=== PATIENT | female | born 1965 | race Caucasian/White ===

== ENCOUNTER 2021-12-14 11:20 | Emergency (ER) | payer SELFPAY | END 2021-12-14 13:30 | disposition home or self-care (01) | LOC: CSHERS 11:20 | DX: J45.901 Unspecified asthma with (acute) exacerbation (principal) | CPT/HCPCS: 99283 ==

== ENCOUNTER 2022-05-01 15:40 | Emergency (ER) | payer OTHER, SELFPAY ==
[2022-05-01] MEDS ORDERED: Acetaminophen 325 MG TAB ONE (16:38)
[2022-05-01] MEDS ORDERED: Aspirin Chewable 81 MG TAB ONE (16:38)
[2022-05-01 16:56] LABS: #Basophils 0.1 10x3/uL (0.0-0.2); #Eosinphils 0.4 10x3/uL (0.0-0.5); #Monocytes 0.5 10x3/uL (0.0-1.1); #Neutrophils 4.1 10x3/uL (1.5-8.4); %Basophils 1.5 % (0.0-2.0); %Eosinophils 5.3 % (0.0-6.0); %Lymphocytes 27.6 % (18.0-47.0); %Monocytes 7.2 % (0.0-10.0); %Neutrophils 58.1 % (40.0-75.0); Hemoglobin 13.5 g/dL (12.0-15.5); Mean Corpuscular HGB CONC 33.4 g/dL (32.0-36.0); Mean Corpuscular Hemoglobin 29.5 pg (27.0-33.0); Mean Corpuscular Volume 88.2 fl (81.6-98.3); Mean Platelet Volume 9.8 fl (7.4-10.4); Platelet Count 347 10x3/uL (150-450); RBC Distribution Width 13.4 % (11.5-14.5); Red Blood Cell (RBC) Count 4.58 10x6/uL (3.90-5.03); White Blood Cell (WBC) Count 7.1 10x3/uL (3.5-10.5)
[2022-05-01 17:13] LABS: ALT (SGPT) 30 U/L (8-55); AST (SGOT) 19 U/L (5-34); Albumin 4.2 g/dL (3.5-5.0); Alkaline Phosphatase 65 U/L (40-110); Anion Gap 15 mmol/L (10-20); BUN (Urea Nitrogen) 22 mg/dL (9.8-20.1); Bilirubin, Total 0.2 mg/dL (0.2-1.2); Calc. Creatinine Clearance 0 mL/min (70-130); Calcium 9.3 mg/dL (7.8-10.44); Carbon Dioxide 24 mmol/L (22-29); Chloride 103 mmol/L (98-107); Estimated GFR 82; Globulin 3.2 g/dL (2.4-3.5); Glucose 298 mg/dL (70-105); Magnesium 1.8 mg/dL (1.6-2.6); Potassium 3.8 mmol/L (3.5-5.1); Protein, Total 7.4 g/dL (6.0-8.3); Sodium 138 mmol/L (136-145)
[2022-05-01 17:14] LABS: Acetaminophen Less than 10.0 mcg/mL (10.0-30.0); Alcohol Less than 10 mg/dL (Less than 10); CK (CPK) 34 U/L (29-168); Salicylate Less than 8.0 mg/dL (15.0-30.0)
[2022-05-01 18:34] LABS: Bilirubin Neg (Negative); Blood, Urine Negative (Negative); Clarity Clear (Clear); Glucose, Urine (Dipstick) 250 mg/dL (Negative); Ketone, Urine Negative (Negative); Leukocyte Negative (Negative); Nitrite Negative (Negative); Protein, Urine (Dipstick) Negative (Neg-Trace); Specific Gravity, Urine 1.025 (1.002-1.036); Urobilinogen Normal mg/dL (Less than 2)
[2022-05-01 18:39] LABS: Pregnancy Test - Urine (BHCG) Negative (Negative); Pregu Control Background? CLEAR/WHITE (CLR/WHITE); Pregu Control Bar Appear? YES (CONTROL BAR); Specific Gravity 1.025 (1.002-1.036)
[2022-05-01 18:50] LABS: Amphetamine Not Detected (NotDetected); Barbiturates Screen Not Detected (NotDetected); Benzodiazepine Screen Detected (NotDetected); Cocaine Metabolite Screen Not Detected (NotDetected); Methadone Not Detected (NotDetected); Methamphetamine Not Detected (NotDetected); Opiate Screen Not Detected (NotDetected); Oxycodone Screen Not Detected (NotDetected); Phencyclidine (PCP) Not Detected (NotDetected); THC/Cannabinoid Screen Detected (NotDetected); Tricyclic Screen Not Detected (NotDetected)
[2022-05-01 20:51] LABS: SARS-CoV-2 NAA Rapid Test Not Detected (NotDetected)
[2022-05-02] MEDS ORDERED: traZODone HCl 50 MG TAB ONE (05:42)
[2022-05-02] MEDS ORDERED: Ziprasidone 20 MG CAP ONE (05:43)
[2022-05-02] MEDS ORDERED: Acetaminophen 325 MG TAB ONE (05:43)
[2022-05-02] MEDS ORDERED: OLANZapine 5 MG TAB PO SCH (06:00)
== END 2022-05-02 16:07 ==
LOC: CSHERS 15:40
DX: F13.90 Sedative, hypnotic, or anxiolytic use, unspecified, uncomplicated (principal); F12.90 Cannabis use, unspecified, uncomplicated; F32.A Depression, unspecified; E11.9 Type 2 diabetes mellitus without complications; R45.851 Suicidal ideations; I10 Essential (primary) hypertension; E03.9 Hypothyroidism, unspecified; Z79.899 Other long term (current) drug therapy; Z20.822 Contact with and (suspected) exposure to COVID-19
CPT/HCPCS: 36415; 71045; 80053; 80306; 80307; 81003; 81025; 82550; 83735; 83880; 84443; 84484; 85025; 93005; U0002

== ENCOUNTER 2022-05-16 14:32 | Emergency (ER) | payer OTHER | END 2022-05-16 17:20 | disposition home or self-care (01) | LOC: CSHERS 14:32 | DX: S90.112A Contusion of left great toe without damage to nail, initial encounter (principal); B37.0 Candidal stomatitis; M54.50 Low back pain, unspecified; I10 Essential (primary) hypertension; E11.9 Type 2 diabetes mellitus without complications; E03.9 Hypothyroidism, unspecified; W19.XXXA Unspecified fall, initial encounter ==

== ENCOUNTER 2022-06-01 13:08 | Outpatient (CLI) | payer OTHER | END 2022-06-01 13:09 | disposition home or self-care (01) | LOC: CSHMAMMO 13:08 | PROVIDERS: ATTEND Family Medicine | DX: Z12.31 Encounter for screening mammogram for malignant neoplasm of breast (principal); N64.89 Other specified disorders of breast; Z80.3 Family history of malignant neoplasm of breast | CPT/HCPCS: 77063; 77067 ==

== ENCOUNTER 2022-06-26 09:34 | Emergency (ER) | payer OTHER | END 2022-06-26 11:05 | disposition home or self-care (01) | LOC: CSHERS 09:34 | DX: H66.93 Otitis media, unspecified, bilateral (principal); J18.9 Pneumonia, unspecified organism; I10 Essential (primary) hypertension; E11.9 Type 2 diabetes mellitus without complications | CPT/HCPCS: 71045; 94760; J7620 ==

== ENCOUNTER 2022-07-20 22:08 | Inpatient (IN) | payer OTHER ==
[2022-07-20] MEDS ORDERED: predniSONE 20 MG TAB ONE (23:10)
[2022-07-21] MEDS ORDERED: Magnesium 2 GM/50 ML BAG (IN WATER) ONE (00:18)
[2022-07-21 00:31] LABS: #Basophils 0.1 10x3/uL (0.0-0.2); #Eosinphils 0.3 10x3/uL (0.0-0.5); #Monocytes 0.8 10x3/uL (0.0-1.1); #Neutrophils 6.7 10x3/uL (1.5-8.4); %Basophils 0.9 % (0.0-2.0); %Eosinophils 2.3 % (0.0-6.0); %Monocytes 6.8 % (0.0-10.0); %Neutrophils 57.7 % (40.0-75.0); Hemoglobin 12.8 g/dL (12.0-15.5); Mean Corpuscular HGB CONC 33.4 g/dL (32.0-36.0); Mean Corpuscular Hemoglobin 29.6 pg (27.0-33.0); Mean Corpuscular Volume 88.5 fl (81.6-98.3); Mean Platelet Volume 9.2 fl (7.4-10.4); Platelet Count 367 10x3/uL (150-450); RBC Distribution Width 12.8 % (11.5-14.5); Red Blood Cell (RBC) Count 4.33 10x6/uL (3.90-5.03); White Blood Cell (WBC) Count 11.6 10x3/uL (3.5-10.5)
[2022-07-21] MEDS ORDERED: Azithromycin 500 MG VIAL ONE (00:35)
[2022-07-21 00:38] LABS: ALT (SGPT) 29 U/L (8-55); AST (SGOT) 18 U/L (5-34); Albumin 4.2 g/dL (3.5-5.0); Alkaline Phosphatase 77 U/L (40-110); Anion Gap 15 mmol/L (10-20); BUN (Urea Nitrogen) 18 mg/dL (9.8-20.1); Bilirubin, Total 0.2 mg/dL (0.2-1.2); Calc. Creatinine Clearance 0 mL/min (70-130); Calcium 10.3 mg/dL (7.8-10.44); Carbon Dioxide 30 mmol/L (22-29); Chloride 97 mmol/L (98-107); Estimated GFR 84; Globulin 3.1 g/dL (2.4-3.5); Glucose 256 mg/dL (70-105); Potassium 3.5 mmol/L (3.5-5.1); Protein, Total 7.3 g/dL (6.0-8.3); Sodium 138 mmol/L (136-145)
[2022-07-21 01:22] LABS: SARS-CoV-2 NAA Rapid Test Not Detected (NotDetected)
[2022-07-21] MEDS ORDERED: Dextrose 5% in Water 1,000 ML IV PRN (03:00)
[2022-07-21] MEDS ORDERED: Potassium Chloride 20 MEQ TAB PO SCH (03:00)
[2022-07-21] MEDS ORDERED: Dextrose 50% Abboject 50 ML SYRINGE IVP PRN (03:00)
[2022-07-21] MEDS ORDERED: HumaLOG 300 UNITS/3 ML VIAL SC SCH (03:00)
[2022-07-21] MEDS ORDERED: cefTRIAXone\\ROCEPHIN 1 GM VIAL ONE (03:05)
[2022-07-21] MEDS ORDERED: Potassium Chloride 20 MEQ TAB ONE (03:05)
[2022-07-21] MEDS ORDERED: Sodium Chloride 0.9% 100 ML ONE (03:06)
[2022-07-21] MEDS ORDERED: Sodium Chloride 0.9% 1,000 ML ONE (03:06)
[2022-07-21] MEDS: cefTRIAXone\\ROCEPHIN 1 GM in Sodium Chloride 0.9% 100 ML IVPB SCH (03:15)
[2022-07-21] MEDS: Sodium Chloride 0.9% 1,000 ML IV SCH ×3 (03:15→22:57)
[2022-07-21] MEDS ORDERED: Insulin Regular 300 UNITS/3 ML VIAL ONE (05:17)
[2022-07-21] MEDS ORDERED: HumaLOG 300 UNITS/3 ML VIAL ONE (05:17)
[2022-07-21] MEDS ORDERED: Insulin Regular 300 UNITS/3 ML VIAL IVP SCH (05:30)
[2022-07-21] MEDS: Budesonide 0.5 MG/2 ML NEB NEB SCH ×2 (06:30→19:50)
[2022-07-21] MEDS: Arformoterol 15 MCG/2 ML NEB NEB SCH ×2 (06:30→19:55)
[2022-07-21 06:35] LABS: Lactic Acid 2.6 mmol/L (0.5-2.2)
[2022-07-21 06:36] VITALS: BMI 30.7
[2022-07-21] MEDS ORDERED: FLU VACC QS2022-23(6MOS UP)/PF 60 MCG/0.5 ML SYRINGE IM ONE (07:15)
[2022-07-21] MEDS ORDERED: Iopamidol 300 61% 100 ML VIAL FS ONE (08:52)
[2022-07-21] MEDS: DULoxetine 30 MG CAP PO SCH (08:59)
[2022-07-21] MEDS: OLANZapine 5 MG TAB PO SCH (08:59)
[2022-07-21] MEDS: methylPREDNISolone Sod Succ 40 MG VIAL IVP SCH ×2 (08:59→21:00)
[2022-07-21] MEDS: guaiFENesin ER 600 MG TAB PO SCH ×2 (08:59→21:00)
[2022-07-21 09:47] LABS: Magnesium 1.7 mg/dL (1.6-2.6)
[2022-07-21] MEDS: HumaLOG 300 UNITS/3 ML VIAL SC PRN ×2 (11:48→17:07)
[2022-07-21 13:18] LABS: Lactic Acid 2.8 mmol/L (0.5-2.2)
[2022-07-21] MEDS: Gabapentin 300 MG CAP PO SCH (20:59)
[2022-07-21] MEDS: Rosuvastatin 20 MG TAB PO SCH (21:00)
[2022-07-21] MEDS: traZODone HCl 50 MG TAB PO SCH (21:00)
[2022-07-21] MEDS: Lantus 1000 UNITS/10 ML VIAL SC SCH (21:00)
[2022-07-21] MEDS ORDERED: hydrOXYzine 25 MG TAB PO SCH (23:30)
[2022-07-22] MEDS: Azithromycin 500 MG in Sodium Chloride 0.9% 250 ML 250 ML IVPB SCH (00:53)
[2022-07-22] MEDS: cefTRIAXone\\ROCEPHIN 1 GM in Sodium Chloride 0.9% 100 ML IVPB SCH (03:24)
[2022-07-22] MEDS: Budesonide 0.5 MG/2 ML NEB NEB SCH ×2 (06:50→18:50)
[2022-07-22] MEDS: Arformoterol 15 MCG/2 ML NEB NEB SCH ×2 (07:00→18:40)
[2022-07-22] MEDS ORDERED: Iopamidol 300 61% 100 ML VIAL FS ONE (08:57)
[2022-07-22] MEDS: guaiFENesin ER 600 MG TAB PO SCH ×2 (10:23→21:26)
[2022-07-22] MEDS: DULoxetine 30 MG CAP PO SCH (10:24)
[2022-07-22] MEDS: methylPREDNISolone Sod Succ 40 MG VIAL IVP SCH ×2 (10:24→21:26)
[2022-07-22] MEDS: OLANZapine 5 MG TAB PO SCH (10:24)
[2022-07-22] MEDS: Sodium Chloride 0.9% 1,000 ML IV SCH ×2 (10:50→14:34)
[2022-07-22] MEDS: HumaLOG 300 UNITS/3 ML VIAL SC PRN ×2 (10:50→17:18)
[2022-07-22] MEDS ORDERED: Lidocaine 5% Patch TD SCH (14:00)
[2022-07-22] MEDS ORDERED: Cyclobenzaprine 10 MG TAB PO SCH (14:00)
[2022-07-22] MEDS ORDERED: methylPREDNISolone Sod Succ 40 MG VIAL IVP SCH (14:00)
[2022-07-22] MEDS ORDERED: guaiFENesin ER 600 MG TAB PO SCH (21:00)
[2022-07-22] MEDS: Cyclobenzaprine 10 MG TAB PO PRN (21:26)
[2022-07-22] MEDS: Rosuvastatin 20 MG TAB PO SCH (21:26)
[2022-07-22] MEDS: Gabapentin 300 MG CAP PO SCH (21:26)
[2022-07-22] MEDS: ALPRAZolam 0.25 MG TAB PO PRN (21:27)
[2022-07-22] MEDS: Lantus 1000 UNITS/10 ML VIAL SC SCH (21:27)
[2022-07-22] MEDS: traZODone HCl 50 MG TAB PO SCH (21:27)
[2022-07-23] MEDS: Azithromycin 500 MG in Sodium Chloride 0.9% 250 ML 250 ML IVPB SCH (01:08)
[2022-07-23] MEDS ORDERED: LIDOCAINE Patch Removal TOP SCH (02:00)
[2022-07-23] MEDS: cefTRIAXone\\ROCEPHIN 1 GM in Sodium Chloride 0.9% 100 ML IVPB SCH (04:15)
[2022-07-23 06:06] LABS: Anion Gap 17 mmol/L (10-20); BUN (Urea Nitrogen) 23 mg/dL (9.8-20.1); Calc. Creatinine Clearance 101 mL/min (70-130); Calcium 9.4 mg/dL (7.8-10.44); Carbon Dioxide 23 mmol/L (22-29); Chloride 104 mmol/L (98-107); Estimated GFR 83; Glucose 383 mg/dL (70-105); Potassium 4.5 mmol/L (3.5-5.1); Sodium 139 mmol/L (136-145)
[2022-07-23] MEDS: HumaLOG 300 UNITS/3 ML VIAL SC PRN ×4 (06:22→21:07)
[2022-07-23] MEDS: Budesonide 0.5 MG/2 ML NEB NEB SCH ×2 (09:10→18:40)
[2022-07-23] MEDS: Arformoterol 15 MCG/2 ML NEB NEB SCH ×2 (09:20→18:45)
[2022-07-23] MEDS: methylPREDNISolone Sod Succ 40 MG VIAL IVP SCH ×2 (09:51→21:00)
[2022-07-23] MEDS: OLANZapine 5 MG TAB PO SCH (09:51)
[2022-07-23] MEDS: guaiFENesin ER 600 MG TAB PO SCH ×2 (09:51→20:57)
[2022-07-23] MEDS: DULoxetine 30 MG CAP PO SCH (09:51)
[2022-07-23] MEDS: Lidocaine 5% Patch TD SCH (09:52)
[2022-07-23] MEDS: Cyclobenzaprine 10 MG TAB PO PRN ×2 (11:34→20:58)
[2022-07-23] MEDS: Sodium Chloride 0.9% 1,000 ML IV SCH (11:54)
[2022-07-23] MEDS: Gabapentin 300 MG CAP PO SCH (20:57)
[2022-07-23] MEDS: traZODone HCl 50 MG TAB PO SCH (20:58)
[2022-07-23] MEDS: ALPRAZolam 0.25 MG TAB PO PRN (20:58)
[2022-07-23] MEDS: Rosuvastatin 20 MG TAB PO SCH (20:58)
[2022-07-23] MEDS: Lantus 1000 UNITS/10 ML VIAL SC SCH (21:00)
[2022-07-23] MEDS: LIDOCAINE Patch Removal TOP SCH (23:00)
[2022-07-24] MEDS: Azithromycin 500 MG in Sodium Chloride 0.9% 250 ML 250 ML IVPB SCH (01:14)
[2022-07-24] MEDS: ALPRAZolam 0.25 MG TAB PO PRN ×2 (01:23→16:10)
[2022-07-24] MEDS: cefTRIAXone\\ROCEPHIN 1 GM in Sodium Chloride 0.9% 100 ML IVPB SCH (02:44)
[2022-07-24] MEDS: HumaLOG 300 UNITS/3 ML VIAL SC PRN ×3 (06:33→16:24)
[2022-07-24] MEDS: Arformoterol 15 MCG/2 ML NEB NEB SCH ×2 (07:42→19:25)
[2022-07-24] MEDS: Budesonide 0.5 MG/2 ML NEB NEB SCH ×2 (07:43→19:25)
[2022-07-24] MEDS: Lidocaine 5% Patch TD SCH (08:29)
[2022-07-24] MEDS: guaiFENesin ER 600 MG TAB PO SCH ×2 (08:29→21:01)
[2022-07-24] MEDS: methylPREDNISolone Sod Succ 40 MG VIAL IVP SCH (08:29)
[2022-07-24] MEDS: DULoxetine 30 MG CAP PO SCH (08:29)
[2022-07-24] MEDS: OLANZapine 5 MG TAB PO SCH (08:29)
[2022-07-24] MEDS ORDERED: Zolpidem Tartrate 5 MG TAB PO PRN (16:07)
[2022-07-24] MEDS: Gabapentin 300 MG CAP PO SCH (20:59)
[2022-07-24] MEDS: traZODone HCl 50 MG TAB PO SCH (20:59)
[2022-07-24] MEDS: Cyclobenzaprine 10 MG TAB PO PRN (21:01)
[2022-07-24] MEDS: Rosuvastatin 20 MG TAB PO SCH (21:01)
[2022-07-24] MEDS: Lantus 1000 UNITS/10 ML VIAL SC SCH (21:03)
[2022-07-25] MEDS: LIDOCAINE Patch Removal TOP SCH (00:58)
[2022-07-25] MEDS: Azithromycin 500 MG in Sodium Chloride 0.9% 250 ML 250 ML IVPB SCH (00:59)
[2022-07-25] MEDS: cefTRIAXone\\ROCEPHIN 1 GM in Sodium Chloride 0.9% 100 ML IVPB SCH (04:00)
[2022-07-25] MEDS: HumaLOG 300 UNITS/3 ML VIAL SC PRN ×2 (05:47→12:46)
[2022-07-25] MEDS: Budesonide 0.5 MG/2 ML NEB NEB SCH (07:15)
[2022-07-25] MEDS: Arformoterol 15 MCG/2 ML NEB NEB SCH (07:25)
[2022-07-25] MEDS ORDERED: metFORMIN 500 MG TAB PO SCH (08:00)
[2022-07-25] MEDS ORDERED: predniSONE 20 MG TAB PO SCH (09:00)
[2022-07-25] MEDS: DULoxetine 30 MG CAP PO SCH (09:13)
[2022-07-25] MEDS: guaiFENesin ER 600 MG TAB PO SCH (09:13)
[2022-07-25] MEDS: OLANZapine 5 MG TAB PO SCH (09:14)
[2022-07-25] MEDS: Lidocaine 5% Patch TD SCH (09:14)
[2022-07-25] MEDS: ALPRAZolam 0.25 MG TAB PO PRN (12:46)
[2022-07-25 15:49] VITALS: BP 135/74; TEMP 98.7
== END 2022-07-25 16:17 | disposition home or self-care (01) | DRG 193 ==
LOC: CSHERS 22:08 → CSHTELE 07-21 02:16 → OBSVTOIN 07-23 11:31
PROVIDERS: ADMIT Family Medicine; ATTEND Internal Medicine
DX: J18.9 Pneumonia, unspecified organism (principal); J96.21 Acute and chronic respiratory failure with hypoxia; J45.901 Unspecified asthma with (acute) exacerbation; Z20.822 Contact with and (suspected) exposure to COVID-19; K76.0 Fatty (change of) liver, not elsewhere classified; E11.9 Type 2 diabetes mellitus without complications; I10 Essential (primary) hypertension; F32.A Depression, unspecified; E66.9 Obesity, unspecified; R91.1 Solitary pulmonary nodule; E03.9 Hypothyroidism, unspecified; K44.9 Diaphragmatic hernia without obstruction or gangrene; F41.9 Anxiety disorder, unspecified; Z88.8 Allergy status to other drugs, medicaments and biological substances; Z68.30 Body mass index [BMI] 30.0-30.9, adult; Z90.711 Acquired absence of uterus with remaining cervical stump; Z90.721 Acquired absence of ovaries, unilateral; Z90.49 Acquired absence of other specified parts of digestive tract
CPT/HCPCS: 36415; 36416; 71045; 71260; 74177; 80048; 80053; 83605; 83735; 85025; 87040; 87149; 94640; 94760; 96375; 96376; G0378; J0456; J0696; J1815; J2920; J3475; J3490; J7050; J7512; J7620; J7626; Q9967

== ENCOUNTER 2022-08-18 14:00 | Outpatient (CLI) | payer OTHER | END 2022-08-18 14:01 | disposition home or self-care (01) | LOC: CSHCP 14:00 | PROVIDERS: ATTEND Internal Medicine | DX: J44.9 Chronic obstructive pulmonary disease, unspecified (principal); J45.20 Mild intermittent asthma, uncomplicated | CPT/HCPCS: 94060; 94726; 94729; 94760 ==